=== PATIENT | female | born 1970 | race Hispanic/Latino ===

== ENCOUNTER 2025-07-06 09:31 | Inpatient (IN) | payer BC ==
[~2025-07-06] VITALS: Ht 160 cm; Wt 80.5 kg
[2025-07-06] MEDS ORDERED: LOSARTAN POTASS25 MG PO (09:48)
[2025-07-06] MEDS ORDERED: LEVOTHYROXINE50 MCG PO (09:48)
[2025-07-06] MEDS: ONDANSETRON HCL INJ 2MG/ML 2ML 2 MG/ML VIAL IV STA (10:21)
[2025-07-06] MEDS: Morphine 4mg INJECTION 4 MG/ML INJ IV STA (10:22)
[2025-07-06] MEDS: SODIUM CHLORIDE 0.9% 1000ML 1,000 ML IV STA (10:22)
[2025-07-06 10:33] LABS: BASOPHILS % 0.2 % (0.0-1.0); EOSINOPHILS % 0.1 % (0.0-6.0); LYMPHOCYTES % 13.5 % (18.0-39.1); MONOCYTES % 6.4 % (4.4-11.3); NEUTROPHILS % 79.3 % (38.7-80.0); RED CELL DISTRIBUTION WIDTH 12.2 % (11.7-14.4)
[2025-07-06 10:38] LABS: LEUKOCYTE ESTERASE ,URINE NEGATIVE (NEGATIVE)
[2025-07-06 10:39] LABS: PROTEIN,URINE DIPSTICK TRACE (NEGATIVE); URINE UROBILINOGEN 1 mg/dL (0.2 - 1)
[2025-07-06 10:48] LABS: INR 0.95
[2025-07-06 10:58] LABS: EST GLOMERULAR FILTRATION RATE 92.0 ML/MIN (>=60)
[2025-07-06 11:19] LABS: WBC,URINE (MAN) 0-5 /HPF (0-5)
[2025-07-06 11:20] LABS: EPITHELIAL CELLS,URINE FEW /LPF
[2025-07-06] MEDS ORDERED: IOPAMIDOL 370 MG/ML 100 ML INFUS..BTL INJ ONE (12:09)
[2025-07-06 12:58] VITALS: PULSE 85; RESP 18; TEMP 98.6
[2025-07-06] MEDS ORDERED: ONDANSETRON HCL INJ 2MG/ML 2ML 2 MG/ML VIAL IV PRN (13:15)
[2025-07-06] MEDS ORDERED: Morphine 4mg INJECTION 4 MG/ML INJ IV PRN (13:15)
[2025-07-06] MEDS: SODIUM CHLORIDE 0.9% 1000ML 1,000 ML IV SCH (13:33)
[2025-07-06 14:00] VITALS: BP 132/79; PULSE 79; RESP 16; TEMP 98.8; O2SAT 100
[2025-07-06 14:44] VITALS: BP 132/79; PULSE 79; RESP 16; TEMP 98.8; O2SAT 100
[2025-07-06] MEDS ORDERED: HYDRALAZINE HCL 20 MG/ML VIAL IV PRN (16:00)
[2025-07-06] MEDS ORDERED: FENTANYL CITRATE/PF 100MCG/2 ML INJ ONE ×2 (16:59→17:20)
[2025-07-06] MEDS ORDERED: MIDAZOLAM HCL 2 MG/2 ML VIAL ONE (16:59)
[2025-07-06] MEDS ORDERED: PROPOFOL IV EMULSION 10 MG/ML 20 ML VIAL ONE (17:00)
[2025-07-06] MEDS ORDERED: ROCURONIUM BROMIDE 1 ML IV ONE (17:01)
[2025-07-06] MEDS ORDERED: DEXAMETHASONE SOD PHOS INJ 4 MG/ML SDV ONE (17:09)
[2025-07-06] MEDS ORDERED: METOCLOPRAMIDE HCL 10 MG/2ML VIAL ONE (17:16)
[2025-07-06] MEDS ORDERED: ACETAMINOPHEN 1000 MG/100 ML 100 ML IV ONE (17:39)
[2025-07-06] MEDS ORDERED: SUGAMMADEX SODIUM 200 MG/2 ML VIAL IV ONE ×2 (17:42→17:59)
[2025-07-06] MEDS ORDERED: ONDANSETRON HCL INJ 2MG/ML 2ML 2 MG/ML VIAL ONE (17:44)
[2025-07-06] MEDS ORDERED: KETOROLAC TROMETHAMINE 30 MG/ML VIAL ONE (17:44)
[2025-07-06] MEDS ORDERED: HYDROMORPHONE 2MG/ML ONE (17:53)
[2025-07-06 20:00] VITALS: BP 99/62; PULSE 75; RESP 18; TEMP 97; O2SAT 97
[2025-07-06] MEDS ORDERED: HEPARIN SOD (PORCINE) 5,000 UNIT/ML VIAL SC SCH (21:00)
[2025-07-07] VITALS (8 sets, daily range): BP systolic 108–132; BP diastolic 69–83; PULSE 60–76; RESP 16–18; TEMP 97.2–98.9; O2SAT 100
[2025-07-07 05:35] LABS: BASOPHILS % 0.2 % (0.0-1.0); EOSINOPHILS % 0.0 % (0.0-6.0); LYMPHOCYTES % 8.1 % (18.0-39.1); MONOCYTES % 2.5 % (4.4-11.3); NEUTROPHILS % 88.5 % (38.7-80.0); RED CELL DISTRIBUTION WIDTH 12.4 % (11.7-14.4)
[2025-07-07 06:09] LABS: EST GLOMERULAR FILTRATION RATE 102.0 ML/MIN (>=60)
[2025-07-07] MEDS: ACETAMINOPHEN 325 MG TAB PO PRN (10:54)
[2025-07-07] MEDS: HEPARIN SOD (PORCINE) 5,000 UNIT/ML VIAL SC SCH (20:07)
[2025-07-08] VITALS: BP 108/84; PULSE 66; RESP 18; TEMP 98.1; O2SAT 100
[2025-07-08 08:00] VITALS: BP 134/99; PULSE 71; RESP 18; TEMP 97.8; O2SAT 100
[2025-07-08] MEDS: ACETAMINOPHEN/CODEINE 300MG - 30MG TAB PO PRN (09:03)
== END 2025-07-08 10:55 | disposition home or self-care (01) | DRG 399 ==
LOC: ER 09:39 → ERHOLD 13:01 → MED/SURG 13:50
PROVIDERS: ADMIT Internal Medicine; ATTEND Internal Medicine
PROC: 0DTJ4ZZ Resection of Appendix, Percutaneous Endoscopic Approach (ICD-10-PCS; principal; 2025-07-06 16:58)
DX: K35.211 Acute appendicitis with generalized peritonitis, with perforation and abscess (principal); E03.9 Hypothyroidism, unspecified; I10 Essential (primary) hypertension; K59.09 Other constipation; E66.9 Obesity, unspecified; Z68.31 Body mass index [BMI] 31.0-31.9, adult; Z79.890 Hormone replacement therapy
CPT/HCPCS: 36415; 74177; 80053; 81001; 83735; 85025; 85610; 85730; 88304; 99284; J1100; J1171; J1644; J1885; J2250; J2270; J2405; J2470; J2543; J2765; J7030; Q9967